=== PATIENT | male | born 1985 | race American Indian/Alaskan Native ===

== ENCOUNTER 2017-05-28 10:09 | Emergency (ER) | payer MEDICAID, OTHER ==
[2017-05-28] MEDS ORDERED: Sodium Chloride 0.9% 2.5 ML Syringe FLUSH PRN (10:33)
[2017-05-28] MEDS ORDERED: Sodium Chloride 0.9% 10 ML Syringe FLUSH PRN (10:33)
[2017-05-28] MEDS ORDERED: Sodium Chloride 0.9% 1,000 ML IV ONE (10:33)
[2017-05-28] MEDS ORDERED: Ondansetron 4 MG/2 ML SDV IVPUSH ONE (10:33)
--- NOTE | 2017-05-28 10:38 | EDM.PDOC ---
<Laura Sow - Last Filed: 05/28/17 12:10> ED HPI GENERAL MEDICAL PROBLEM - General Chief Complaint: General Stated Complaint: VOMITING Time Seen by Provider: 05/28/17 10:34 Source of Information: Reports: Patient History Limitations: Reports: No Limitations - History of Present Illness INITIAL COMMENTS - FREE TEXT/NARRATIVE: HISTORY AND PHYSICAL: []32-year-old male who's been sick for the last 2-1/2 days History of Present Illness: [Abdominal pain nausea vomiting] Review of Systems: As per history of present illness and below otherwise all systems reviewed and negative. Past medical history: As per history of present illness and as reviewed below otherwise noncontributory. Surgical history: As per history of present illness and as reviewed below otherwise noncontributory. Social history: No reported history of drug or alcohol abuse. Family history: As per history of present illness and as reviewed below otherwise noncontributory. Physical exam: Alert and oriented male who answers questions in full sentences without shortness of breath nontoxic in appearance HEENT: Atraumatic, normocehpalic, pupils reactive, negative for conjunctival pallor or scleral icterus, mucous membranes dry throat clear, neck supple, nontender, trachea midline. Lungs: Clear to auscultation, breath sounds equal bilaterally, chest non tender. Heart: S1S2, regular, negative for clicks, rubs, or JVD. Abdomen: Soft, nondistended, nontender. Negative for masses or hepatossplenmegaly. Negative for costovertebral tenderness. Pelvis: Stable nontender. Genitourinary: Deferred. Rectal: Deferred Extremities: Atraumatic, negative for cords or calf pain. Neurovascular unremarkable. Neuro: Awake, alert, oriented. Cranial nerves II through XII unremarkable. Cerebellum unremarkable. Motor and sensory unremarkable throughout. Exam nonfocal. Diagnostics: CBC CMP] influenza Therapeutics: [IV fluids and Zofran] Impression: [] Plan: [] Definitive disposition and diagnosis as appropriate pending reevaluation and review of above. Generalized Pain Score (Numeric/FACES): 10 - Related Data Allergies Allergy/AdvReac Type Severity Reaction Status Date / Time No Known Allergies Allergy Verified 05/28/17 10:19 Home Meds: Home Meds Benzonatate [Tessalon Perles] 100 mg PO QID PRN #40 cap 05/28/17 [Rx] Ondansetron [Zofran ODT] 4 mg PO Q8H #12 tab.dis 05/28/17 [Rx] Past Medical History - Past Health History Medical/Surgical History: Denies Medical/Surgical History Respiratory History: Reports: Asthma - Infectious Disease History Infectious Disease History: Reports: Chicken Pox - Past Surgical History HEENT Surgical History: Reports: Cataract Surgery, Detached Retina, Eye Surgery , Laser Surgery Social & Family History - Tobacco Use Smoking Status *Q: Current Some Day Smoker Years of Tobacco use: 2 Packs/Tins Daily: 0.1 Second Hand Smoke Exposure: No - Caffeine Use Caffeine Use: Reports: None - Recreational Drug Use Recreational Drug Use: Yes Drug Use in Last 12 Months: No Recreational Drug Type: Reports: Marijuana/Hashish ED ROS GENERAL - Review of Systems Review Of Systems: ROS reveals no pertinent complaints other than HPI. ED EXAM, GENERAL - Physical Exam Exam: See Below (see dictation) Course - Vital Signs Last Recorded V/S: Last Vital Signs Temp 36.6 C 05/28/17 11:23 Pulse 104 H 05/28/17 12:30 Resp 18 05/28/17 12:30 BP 149/98 H 05/28/17 12:30 Pulse Ox 100 05/28/17 12:30 - Orders/Labs/Meds Orders: Active Orders 24 hr Category Date Time Status Saline Lock Insert [OM.PC] Stat Oth 05/28/17 10:33 Ordered Labs: Laboratory Tests 05/28/17 05/28/17 Range/Units 10:45 10:45 WBC 9.27 (4.0-11.0) K/uL RBC 4.39 L (4.50-5.90) M/uL Hgb 14.5 (13.0-17.0) g/dL Hct 41.4 (38.0-50.0) % MCV 94.3 (80.0-98.0) fL MCH 33.0 H (27.0-32.0) pg MCHC 35.0 (31.0-37.0) g/dL RDW Std Deviation 46.9 (28.0-62.0) fl RDW Coeff of Hugo 14 (11.0-15.0) % Plt Count 269 (150-400) K/uL MPV 10.10 (7.40-12.00) fL Neut % (Auto) 63.1 (48.0-80.0) % Lymph % (Auto) 29.2 (16.0-40.0) % [place] % (Auto) 5.2 (0.0-15.0) % Eos % (Auto) 2.3 (0.0-7.0) % Baso % (Auto) 0.2 (0.0-1.5) % Neut # (Auto) 5.9 H (1.4-5.7) K/uL Lymph # (Auto) 2.7 H (0.6-2.4) K/uL [place] # (Auto) 0.5 (0.0-0.8) K/uL Eos # (Auto) 0.2 (0.0-0.7) K/uL Baso # (Auto) 0.0 (0.0-0.1) K/uL Nucleated RBC % 0.0 /100WBC Nucleated RBCs # 0 K/uL Sodium 142 (136-146) mmol/L Potassium 3.7 (3.5-5.1) mmol/L Chloride 107 (98-110) mmol/L Carbon Dioxide 23 (21-31) mmol/L BUN 8 (6.0-23.0) mg/dL Creatinine 0.8 (0.6-1.5) mg/dL Est Cr Clr Drug Dosing 131.34 mL/min Estimated GFR (MDRD) > 60.0 ml/min Glucose 102 (60-110) mg/dL Calcium 9.4 (8.8-10.8) mg/dL Total Bilirubin 0.6 (0.1-1.5) mg/dL AST 23 (5-40) IU/L ALT 21 (8-54) IU/L Alkaline Phosphatase 101 (40-150) Total Protein 8.0 (6.0-8.0) g/dL Albumin 4.4 (3.5-5.0) g/dL Globulin 3.6 H (2.0-3.5) g/dL Albumin/Globulin Ratio 1.2 L (1.3-2.8) Meds: Medications Discontinued Medications Generic Name Dose Route Start Last Admin Trade Name Freq PRN Reason Stop Dose Admin Sodium Chloride 1,000 mls @ 999 mls/hr 05/28/17 10:33 05/28/17 10:46 Normal Saline IV 05/28/17 11:33 999 mls/hr STAT ONE Administration Ondansetron HCl 4 mg 05/28/17 10:33 05/28/17 10:46 Zofran IVPUSH 05/28/17 10:34 4 mg ONETIME ONE Administration Sodium Chloride 10 ml 05/28/17 10:33 05/28/17 10:40 Saline Flush FLUSH 10 ml ASDIRECTED PRN Administration Keep Vein Open Sodium Chloride 2.5 ml 05/28/17 10:33 05/28/17 10:41 Saline Flush FLUSH 2.5 ml ASDIRECTED PRN Administration Keep Vein Open Departure - Departure Time of Disposition: 12:10 Disposition: Home, Self-Care 01 Condition: Good Clinical Impression: Gastroenteritis - Discharge Information Prescriptions: Benzonatate [Tessalon Perles] 100 mg PO QID PRN #40 cap PRN Reason: Cough Ondansetron [Zofran ODT] 4 mg PO Q8H #12 tab.dis Instructions: Viral Gastroenteritis, Adult, [id number] Referrals: PCP,None [Primary Care Provider] - Forms: ED Department Discharge <Laura Meadows - Last Filed: 05/28/17 17:58> ED HPI GENERAL MEDICAL PROBLEM - History of Present Illness INITIAL COMMENTS - FREE TEXT/NARRATIVE: Please add to impression: Gastroenteritisviral syndrome
[2017-05-28 11:51] LABS: CHLORIDE,CL 107 mmol/L (98-110); SODIUM,NA 142 mmol/L (136-146)
[2017-05-28 13:13] VITALS: BP 149/98
== END 2017-05-28 12:31 | disposition home or self-care (01) ==
LOC: MW.ED 10:09
DX: A08.4 Viral intestinal infection, unspecified (principal); F17.210 Nicotine dependence, cigarettes, uncomplicated
CPT/HCPCS: 80053; 85025; 87804; 96361; 96374; 99283; J2405; J7040; 99282

== ENCOUNTER 2018-01-31 18:19 | Emergency (ER) | payer MEDICAID, OTHER ==
--- NOTE | 2018-01-31 18:34 | EDM.PDOC ---
ED HPI GENERAL MEDICAL PROBLEM <Austin Meza - Last Filed: 01/31/18 18:29> <Lee Carr Sanket - Last Filed: 01/31/18 19:59> - General Chief Complaint: Head Injury Stated Complaint: HIT HEAD AT WORK Time Seen by Provider: 01/31/18 18:25 - History of Present Illness INITIAL COMMENTS - FREE TEXT/NARRATIVE: HISTORY AND PHYSICAL: History of present illness: Patient 33-year-old male presents status post trauma in which a pipe fell striking him on his left head and neck he complains of headache and neck pain he denies numbness or weakness nausea vomiting blurry vision or any other neurological sinus symptoms there is no other trauma or concern Review of systems: As per history of present illness and below otherwise all systems reviewed and negative. Past medical history: As per history of present illness and as reviewed below otherwise noncontributory. Surgical history: As per history of present illness and as reviewed below otherwise noncontributory. Social history: No reported history of drug or alcohol abuse. Family history: As per history of present illness and as reviewed below otherwise noncontributory. Physical exam: HEENT: Atraumatic, normocephalic, pupils reactive, negative for conjunctival pallor or scleral icterus, mucous membranes moist, throat clear, neck supple, nontender, trachea midline. Lungs: Clear to auscultation, breath sounds equal bilaterally, chest nontender. Heart: S1S2, regular, negative for clicks, rubs, or JVD. Abdomen: Soft, nondistended, nontender. Negative for masses or hepatosplenomegaly. Negative for costovertebral tenderness. Pelvis: Stable nontender. Genitourinary: Deferred. Rectal: Deferred. Extremities: Atraumatic, negative for cords or calf pain. Neurovascular unremarkable. Neuro: Awake, alert, oriented. Cranial nerves II through XII unremarkable. Cerebellum unremarkable. Motor and sensory unremarkable throughout. Exam nonfocal. Diagnostics: CT brain and C-spine Therapeutics: C-collar applied upon arrival Impression: #1 head trauma #2 neck trauma Definitive disposition and diagnosis as appropriate pending reevaluation and review of above. (Austin Meza) I've seen and examined the patient and agree with the above Patient hasReproducible pain along left trapezius distribution No fever nausea vomiting chills sweats Gen. 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 [No Known Home Meds] 01/31/18 [History] Past Medical History - Past Health History Medical/Surgical History: Denies Medical/Surgical History Respiratory History: Reports: Asthma - Infectious Disease History Infectious Disease History: Reports: Chicken Pox - Past Surgical History HEENT Surgical History: Reports: Cataract Surgery, Detached Retina, Eye Surgery , Laser Surgery <Austin Meza - Last Filed: 01/31/18 18:29> Social & Family History - Caffeine Use Caffeine Use: Reports: None <Austin Meza - Last Filed: 01/31/18 18:29> ED ROS GENERAL - Review of Systems Review Of Systems: ROS reveals no pertinent complaints other than HPI. <Austin Meza - Last Filed: 01/31/18 18:29> - Review of Systems Review Of Systems: See Below <Lee Carr - Last Filed: 01/31/18 19:59> ED EXAM, HEAD INJURY - Physical Exam Exam: See Below (See dictation) <Austin Meza - Last Filed: 01/31/18 18:29> - Physical Exam Exam: See Below <Lee Carr - Last Filed: 01/31/18 19:59> - Vital Signs Last Recorded V/S: Last Vital Signs Temp 97.9 F 01/31/18 18:19 Pulse 89 01/31/18 18:19 Resp 18 01/31/18 18:19 BP 142/104 H 01/31/18 18:19 Pulse Ox 98 01/31/18 18:19 - Orders/Labs/Meds Orders: Active Orders 24 hr Category Date Time Status Cervical Spine wo Cont [CT] Stat Exams 01/31/18 18:27 Taken Head wo Cont [CT] Stat Exams 01/31/18 18:27 Taken Departure - Departure Time of Disposition: 18:33 Condition: Good <Austin Meza - Last Filed: 01/31/18 18:29> <Lee Carr - Last Filed: 01/31/18 19:59> - Departure Disposition: Home, Self-Care 01 Clinical Impression: Head injury, Neck injury - Discharge Information Referrals: PCP,None [Primary Care Provider] - Forms: ED Department Discharge Additional Instructions: The following information is given to patients seen in the emergency department who are being discharged to home. This information is to outline your options for follow-up care. We provide all patients seen in our emergency department with a follow-up referral. The need for follow-up, as well as the timing and circumstances, are variable depending upon the specifics of your emergency department visit. If you don't have a primary care physician on staff, we will provide you with a referral. We always advise you to contact your personal physician following an emergency department visit to inform them of the circumstance of the visit and for follow-up with them and/or the need for any referrals to a consulting specialist. The emergency department will also refer you to a specialist when appropriate. This referral assures that you have the opportunity for followup care with a specialist. All of these measure are taken in an effort to provide you with optimal care, which includes your followup. Under all circumstances we always encourage you to contact your private physician who remains a resource for coordinating your care. When calling for followup care, please make the office aware that this follow-up is from your recent emergency room visit. If for any reason you are refused follow-up, please contact the [facility] emergency department at and asked to speak to the emergency department charge nurse. Primary Care [address] [place] [id number] Motrin/Tylenol as directed follow-up primary medical doctor and/or clinic call to schedule appointment return as needed as discussed
[2018-02-01 01:36] VITALS: BP 121/87
--- NOTE | 2018-02-01 10:27 | CT ---
EXAM DATE: 01/31/18 PATIENT'S AGE: 33 Patient: ROQUE MOTA Facility: [place], [place] Site . Site : 1985 Study: CT Spine Cervical [id number]/11/2018 6:57:58 PM Ordering Physician: Derrick Avila Final Report: INDICATION: pain, blunt trauma CT CERVICAL SPINE WITHOUT CONTRAST TECHNIQUE: Multidetector axial CT imaging was performed through the cervical spine, without contrast. Sagittal and coronal reconstructions were generated. FINDINGS: No acute fractures are identified. There is straightening of lordosis , possibly due to muscle spasm. Osseous alignment is otherwise unremarkable and no subluxation is seen. Prevertebral soft tissues appear normal. Included portions of the airway and lung apices are within normal limits. IMPRESSION: Straightening of lordosis, possibly due to muscle spasm. No fracture , subluxation, or other acute finding identified. STONEY BALDERAS MD [employer] Dictated by: Memo Balderas MD @ 01/31/2018 19:32:00 (Electronic Signature) Report Signed by Proxy. [facility]
--- NOTE | 2018-02-01 10:28 | CT ---
EXAM DATE: 01/31/18 PATIENT'S AGE: 33 Patient: ROQUE MOTA Facility: [place], [place] Site . Site : 1985 Study: CT Head [id number]/11/2018 7:01:13 PM Ordering Physician: Derrick Avila Final Report: INDICATION: pain, blunt trauma CT HEAD WITHOUT CONTRAST TECHNIQUE: Multiple axial CT images were performed through the head without intravenous contrast administration. COMPARISON: No previous studies are currently available for comparison. FINDINGS: No acute intracranial hemorrhage is identified. No extra-axial collections are evident and there is no mass effect or midline shift. Ventricles are normal in size and configuration. Brain parenchyma appears normal with unremarkable roach-white differentiation. Osseous structures are within normal limits and no fractures are seen. Included portions of the paranasal sinuses and mastoid air cells are normally aerated. IMPRESSION: Normal non-contrast head CT. STONEY BALDERAS MD [employer] [facility] Dictated by: Memo Balderas MD @ 01/31/2018 19:33:47 (Electronic Signature) Report Signed by Proxy. [facility]
== END 2018-01-31 20:26 | disposition home or self-care (01) ==
LOC: MW.ED 18:19
DX: S09.90XA Unspecified injury of head, initial encounter (principal); S19.9XXA Unspecified injury of neck, initial encounter; X58.XXXA Exposure to other specified factors, initial encounter
CPT/HCPCS: 70450; 70450-26; 72125; 72125-26; 99283; 99284-25